=== PATIENT | male | born 1950 | race Caucasian/White ===

== ENCOUNTER 2017-07-03 08:11 | Day surgery (SDC) | payer BC ==
--- NOTE | 2017-07-02 13:45 | HISTORY AND PHYSICAL E ---
History and Physical NAME: LIAM GANT : 1950 AGE: 66Y ADMITTED: 07/03/2017 ROOM: PRIMARY CARE PHYSICIAN: WINSTON DÍAZ MD CHIEF COMPLAINT: Patient presented for colon exam. His colonoscopy in 2006 showed diverticulosis, sigmoid polyp. HISTORY OF PRESENT ILLNESS: A 66-year-old patient who presented for colon screening. He did have colonoscopy showing diverticulosis of sigmoid colon, benign-looking polyp, 2 mm in the sigmoid and this polyp was an adenomatous polyp. PAST MEDICAL HISTORY: 1. Hypertension. 2. High cholesterol. PAST SURGICAL HISTORY: Colonoscopy, 2006. MEDICATIONS: 1. He takes Bystolic. 2. Pravastatin. 3. Vitamin E. SOCIAL HISTORY: . Does not smoke. Drinks twice a week. FAMILY HISTORY: His father had heart disease and ID, passed at age 57. His mom is living. REVIEW OF SYSTEMS: CARDIAC: Hypertension. ENDOCRINE: Negative. GASTROINTESTINAL: Colon screening. PHYSICAL EXAMINATION: VITAL SIGNS: His blood pressure is 120/80, pulse 80, respirations 18, temp is 98. HEAD, EYES, EARS, NOSE, THROAT: Normal. ABDOMEN: Soft. NEUROLOGIC: Exam negative. DIAGNOSTIC DATA: His labs show a white count of 4. He does have anemia; hemoglobin 9.5 with a hematocrit of 31. The patient's iron is low at 17, low iron saturation of 4, TIBC is 449. CONCLUSION: Colon screening. PLAN: Colonoscopy, scheduled for 07/03/2017. DICTATING PHYSICIAN: JESSICA BALLARD M.D. [id number] PHY#: [id number] ID: [id number] JOB#: [id number] ACCT: [id number] cc:MD ARJUN, JESSICA DE LOS SANTOS M.D. >
[~2017-07-03 08:11] MED LIST: EPINEPHRINE INJ 1 MG/10 ML DISP.SYRIN ONE; FENTANYL CITRATE INJ/PF 100 MCG/2 ML AMPUL ONE; FLUMAZENIL INJ 0.5 MG/5 ML VIAL IV ONE; GLUCAGON,HUMAN RECOMB 1 MG INJ ONE; GLYCOPYRROLATE INJ 0.4 MG/2 ML VIAL ONE; LIDOCAINE 2% JELLY 30 ML TUBE ONE; NALOXONE HCL INJ/PF 0.4 MG/1 ML SDV ONE; ONDANSETRON HCL INJ/PF 4 MG/2 ML SDV ONE
[2017-07-03] MEDS: MIDAZOLAM 2 MG/2 ML INJ ONE ×2 (08:56→09:04)
[2017-07-03] MEDS ORDERED: SIMETHICONE 80 MG TAB.CHEW ONE (10:00)
[2017-07-03] MEDS ORDERED: ONDANSETRON HCL INJ/PF 4 MG/2 ML SDV ONE (10:00)
[2017-07-03 10:18] LABS: ABSOLUTE EOSINOPHILS # (AUTO) 0.1 10^3/uL (0.0-0.6); ABSOLUTE LYMPHOCYTES (AUTO) 1.4 10^3/uL (0.5-4.7); ABSOLUTE MONOCYTES (AUTO) 0.5 10^3/uL (0.1-1.4); ABSOLUTE NEUT (AUTO) 2.2 10^3/uL (1.7-8.2); BASOPHILS % (AUTO) 0.4 % (0-2); EOSINOPHILS % (AUTO) 1.9 % (0-6); HEMATOCRIT 28.2 % (37.9-51.0); HEMOGLOBIN 8.8 g/dL (13.5-17.0); HGB HCT DIFFERENCE -1.8; MEAN CORPUSCULAR HEMOGLOBIN 23.2 pg (27.0-33.4); MEAN CORPUSCULAR HGB CONC 31.3 g/dL (32.0-36.0); MEAN CORPUSCULAR VOLUME 74 fl (80-97); RED BLOOD COUNT 3.79 10^6/uL (4.35-5.55); SEGMENTED NEUTROPHILS % (AUTO) 52.7 % (42-78); WHITE BLOOD COUNT 4.2 10^3/uL (4.0-10.5)
[2017-07-03 10:34] LABS: IRON 11.2 ug/dL (49-181)
[2017-07-03 11:07] LABS: PROSTATE SPECIFIC ANTIGEN 1.89 ng/mL (<4.00)
[2017-07-03 11:11] LABS: FERRITIN 4.25 ng/mL (17.9-464.0)
--- NOTE | 2017-07-03 11:15 | OPERATIVE REPORT E ---
Operative Report NAME: LIAM GANT : 1950 AGE: 66Y DATE OF SURGERY: 07/03/2017 ROOM: PREOPERATIVE DIAGNOSIS: Colon screening. POSTOPERATIVE DIAGNOSIS: Sigmoid descending colon diverticulosis. Diverticulosis in the orifice of the appendix adjacent to the ileocecal valve, question ventral hernia. PROCEDURE: Colonoscopy. SURGEON: JESSICA BALLARD M.D. TISSUE REMOVED OR ALTERED: None. ANESTHESIA: Versed 3, fentanyl 100. DESCRIPTION OF PROCEDURE: Rectal exam shows slightly enlarged prostate, sigmoid diverticulosis. Transverse colon difficult to intubate secondary to question ventral hernia. Ascending colon normal. Cecum shows diverticulosis. Scope withdrawn from cecum, ascending, transverse, descending, sigmoid all the way to the rectum. CONCLUSION: Diverticulosis cecum and sigmoid descending colon, question ventral hernia towards the right side of the transverse colon. No evidence of bleeding. No evidence of malignancy. No evidence of polyps. PLAN: Patient needs to have outpatient abdominal CT or abdominal ultrasound looking for ventral hernia and possibility of plain abdominal CT or CT with barium for further evaluation of question ventral hernia. Will start with total abdominal ultrasound to look for ventral hernia or lipoma in the abdominal wall, mid abdomen more towards the right side of the midline. Baseline lab studies. DICTATING PHYSICIAN: JESSICA BALLARD M.D. [id number] PHY#: [id number] ID: [id number] JOB#: [id number] ACCT: [id number] cc:JESSICA BALLARD M.D. >
--- NOTE | 2017-07-03 11:16 | DISCHARGE SUMMARY E ---
Discharge Summary NAME: LIAM GANT : 1950 AGE: 66Y ADMITTED: 07/03/2017 DISCHARGED: 07/03/2017 HOSPITAL COURSE: The patient is a 66-year-old male who presents for colon screening. There are no polyps, no bleeding. The patient does have diverticulosis in his descending colon and in his cecum, question of ventral hernia. DISCHARGE PLAN: 1. Baseline labs studies. 2. Awaiting abdominal ultrasound. 3. Follow up office visit in the next few days. 4. Arrange for outpatient abdominal ultrasound looking for ventral hernia. DICTATING PHYSICIAN: JESSICA BALLARD M.D. [id number] PHY#: [id number] ID: [id number] JOB#: [id number] ACCT: [id number] cc:JESSICA BALLARD M.D., TAJ >
[2017-07-03 11:36] VITALS: BP 122/77
== END 2017-07-03 10:57 | disposition home or self-care (01) ==
LOC: END 08:11
PROVIDERS: ATTEND Specialist
PROC: 0DJD8ZZ Inspection of Lower Intestinal Tract, Via Natural or Artificial Opening Endoscopic (ICD-10-PCS; principal; 2017-07-03 09:00)
DX: Z12.11 Encounter for screening for malignant neoplasm of colon (principal); K57.30 Diverticulosis of large intestine without perforation or abscess without bleeding; I10 Essential (primary) hypertension; E78.00 Pure hypercholesterolemia, unspecified; Z79.899 Other long term (current) drug therapy; D64.9 Anemia, unspecified
CPT/HCPCS: 45378; 36415; 82607; 82728; 83540; 84153; 85025; J2250; J3010; J1610; J2405; J0171; J2310; J3490

== ENCOUNTER → 2017-07-12 | Outpatient (CLI) | payer BC ==
[2017-07-12 14:44] LABS: ABSOLUTE EOSINOPHILS # (AUTO) 0.1 10^3/uL (0.0-0.6); ABSOLUTE LYMPHOCYTES (AUTO) 1.3 10^3/uL (0.5-4.7); ABSOLUTE MONOCYTES (AUTO) 0.3 10^3/uL (0.1-1.4); BASOPHILS % (AUTO) 0.4 % (0-2); EOSINOPHILS % (AUTO) 2.4 % (0-6); HEMATOCRIT 27.8 % (37.9-51.0); HEMOGLOBIN 8.8 g/dL (13.5-17.0); HGB HCT DIFFERENCE -1.4; LYMPHOCYTES % (AUTO) 35.5 % (13-45); MEAN CORPUSCULAR HEMOGLOBIN 22.7 pg (27.0-33.4); MEAN CORPUSCULAR HGB CONC 31.6 g/dL (32.0-36.0); MEAN CORPUSCULAR VOLUME 72 fl (80-97); RED BLOOD COUNT 3.87 10^6/uL (4.35-5.55); RED CELL DISTRIBUTION WIDTH 16.8 % (11.5-14.0); SEGMENTED NEUTROPHILS % (AUTO) 52.7 % (42-78); WHITE BLOOD COUNT 3.8 10^3/uL (4.0-10.5)
== END ==
LOC: OD 14:07
PROVIDERS: ATTEND Specialist
DX: D50.9 Iron deficiency anemia, unspecified (principal)
CPT/HCPCS: 36415; 83540; 85025

== ENCOUNTER 2017-07-18 09:20 | Day surgery (SDC) | payer BC ==
--- NOTE | 2017-07-13 10:04 | HISTORY AND PHYSICAL E ---
History and Physical NAME: LIAM GANT : 1950 AGE: 66Y ADMITTED: 07/18/2017 ROOM: CHIEF COMPLAINT: Iron-deficiency anemia; recent colonoscopy showing diverticulosis. No bleeding in the colon. INDICATION: Patient presented for upper endoscopy; question the reason for iron-deficiency anemia. HISTORY: This 66-year-old male had recent colonoscopy, shows diverticulosis; now patient presents for upper scope. REVIEW OF SYSTEMS: CARDIAC: Hypertension. ENDOCRINE: Negative. GASTROINTESTINAL: Colon screening. Diverticulosis. ONCOLOGY/HEMATOLOGY: Negative. FAMILY HISTORY: Father had cardiac disease. Mother is alive. PHYSICAL EXAMINATION: Age 66. Weight 201. VITAL SIGNS: Blood pressure 130/60, pulse 80, respirations 18, temperature is 98. HEAD, EYES, EARS, NOSE, THROAT: Normal. ABDOMEN: Soft. NEUROLOGIC: Exam negative. LABORATORY: White count 4, hemoglobin 8.8, hematocrit 28.2, MCV 74. Serum iron is 11. Normal B12. CONCLUSION: ANEMIA, IRON DEFICIENCY. PLAN: Upper endoscopy. Abdominal ultrasound questioned ventral hernia or lipoma, abdominal wall hernia. Start the patient on iron, stool softener. Consider hematology consult. Admit on 07/18/2017. DICTATING PHYSICIAN: JESSICA BALLARD M.D. [id number] [id number] PHY#: [id number] ID: [id number] JOB#: [id number] ACCT: [id number] cc:JESSICA BALLARD M.D. >
[~2017-07-18 09:20] MED LIST changes: -FLUMAZENIL INJ 0.5 MG/5 ML VIAL IV ONE; +FLUMAZENIL INJ 0.5 MG/5 ML VIAL ONE; -GLUCAGON,HUMAN RECOMB 1 MG INJ ONE; -LIDOCAINE 2% JELLY 30 ML TUBE ONE
[2017-07-18] MEDS: MIDAZOLAM 2 MG/2 ML INJ ONE ×2 (09:58→10:01)
[2017-07-18 11:11] VITALS: BP 103/70
[2017-07-18 11:43] LABS: ABSOLUTE EOSINOPHILS # (AUTO) 0.1 10^3/uL (0.0-0.6); ABSOLUTE LYMPHOCYTES (AUTO) 1.2 10^3/uL (0.5-4.7); ABSOLUTE MONOCYTES (AUTO) 0.4 10^3/uL (0.1-1.4); ABSOLUTE NEUT (AUTO) 1.7 10^3/uL (1.7-8.2); BASOPHILS % (AUTO) 0.3 % (0-2); EOSINOPHILS % (AUTO) 2.5 % (0-6); HEMATOCRIT 28.4 % (37.9-51.0); HEMOGLOBIN 8.8 g/dL (13.5-17.0); LYMPHOCYTES % (AUTO) 36.1 % (13-45); MEAN CORPUSCULAR HEMOGLOBIN 22.5 pg (27.0-33.4); MEAN CORPUSCULAR HGB CONC 31.1 g/dL (32.0-36.0); MEAN CORPUSCULAR VOLUME 72 fl (80-97); MONOCYTES % (AUTO) 10.8 % (3-13); RED BLOOD COUNT 3.93 10^6/uL (4.35-5.55); RED CELL DISTRIBUTION WIDTH 16.6 % (11.5-14.0); SEGMENTED NEUTROPHILS % (AUTO) 50.3 % (42-78); WHITE BLOOD COUNT 3.4 10^3/uL (4.0-10.5)
--- NOTE | 2017-07-18 15:44 | OPERATIVE REPORT E ---
Operative Report NAME: LIAM GANT : 1950 AGE: 66Y DATE OF SURGERY: 07/18/2017 ROOM: PREOPERATIVE DIAGNOSIS: Iron deficiency anemia. POSTOPERATIVE DIAGNOSIS: Erosive gastritis, duodenitis. OPERATION: Esophagoscopy, gastroscopy, duodenoscopy. SURGEON: JESSICA BALLARD M.D. ANESTHESIA: Versed 4, fentanyl 100. TISSUE REMOVED OR ALTERED: Gastric biopsy for H. pylori. PROCEDURE: scope passed under guided vision without difficulty. Esophagoscopy junction at 40, mild esophagitis, no varices. Gastroscopy: Erosive gastritis, some erosions. Gastroscopy shows no malignancy, no definite ulcer, multiple erosions especially in the antrum. Duodenoscopy: The duodenal bulb is nodular and inflamed consistent with duodenitis. No ulcers. Descending duodenum duodenitis. CONCLUSION: No evidence of ulcers. Erosive gastritis. Severe duodenitis. PLAN: Hold aspirin, nonsteroidal. Start on omeprazole 40 mg p.o. b.i.d. Repeat serum iron, serology for Celiac disease, and H. pylori. DICTATING PHYSICIAN: JESSICA BALLARD M.D. [id number] [id number] PHY#: [id number] ID: [id number] JOB#: [id number] ACCT: [id number] cc:JESSICA BALLARD M.D. >
--- NOTE | 2017-07-19 13:45 | DISCHARGE SUMMARY E ---
Discharge Summary NAME: LIAM GANT : 1950 AGE: 66Y ADMITTED: 07/18/2017 DISCHARGED: 07/18/2017 ADDENDUM: The patient is a 66-year-old male who presented to us with iron deficiency anemia. Recent colonoscopy shows no polyps, no malignancy. He does have diverticulosis. His stool for outpatient occult blood x3 negative. He does have very low iron 11. Today, upper scope shows spasm in the esophagus and erosive gastritis and severe duodenitis. DISCHARGE PLAN: Awaiting biopsy. Start patient on omeprazole. Awaiting H. pylori serology and biopsy. Start the patient on iron. Hold aspirin and start him on omeprazole, Prilosec 40 b.i.d. Consider hematology consult. Patient's primary is Dr. Sravan Ponce, [facility], [place]. DICTATING PHYSICIAN: JESSICA BALLARD M.D. [id number] [id number] PHY#: [id number] ID: [id number] JOB#: [id number] ACCT: [id number] cc:JESSICA BALLARD M.D. >
--- NOTE | 2017-07-19 13:45 | DISCHARGE SUMMARY E ---
Discharge Summary NAME: LIAM GANT : 1950 AGE: 66Y ADMITTED: 07/18/2017 DISCHARGED: 07/18/2017 HOSPITAL COURSE: The patient is a 66-year-old male who presented with iron deficiency anemia. We just did colonoscopy on him a few days ago, which showed no bleeding. The patient had diverticulosis. His stool for occult blood x3 were all negative. Today's upper endoscopy shows no active bleeding. He does have erosive gastritis and severe duodenitis. DISCHARGE PLAN: Awaiting biopsy results. Repeat iron and serology for celiac disease and H. pylori. Patient to start on iron. Patient needs hematology consult and he has a new primary in [facility], Dr. Anand. DICTATING PHYSICIAN: JESSICA BALLARD M.D. [id number] [id number] PHY#: [id number] ID: [id number] JOB#: [id number] ACCT: [id number] cc:JESSICA BALLARD M.D. >
[2017-07-22 17:16] LABS: DEAMIDATED GLIADIN IGA AB 7 units (0-19); DEAMIDATED GLIADIN IGG AB 3 units (0-19); IMMUNOGLOBULIN A 2 140 mg/dL (61-437); T-TRANSGLUTAMINASE (TTG) IGG <2 U/mL (0-5)
== END 2017-07-18 11:30 | disposition home or self-care (01) ==
LOC: END 09:20
PROVIDERS: ATTEND Specialist
PROC: 0DB68ZX Excision of Stomach, Via Natural or Artificial Opening Endoscopic, Diagnostic (ICD-10-PCS; principal; 2017-07-18 10:00)
DX: D50.9 Iron deficiency anemia, unspecified (principal); I10 Essential (primary) hypertension; K31.9 Disease of stomach and duodenum, unspecified; K29.80 Duodenitis without bleeding; K57.30 Diverticulosis of large intestine without perforation or abscess without bleeding
CPT/HCPCS: 43239; 86677 ×3; 36415; 86301; 82941; 85025; 86140; 83520 ×5; 88305 ×2; J2250; J3010; J2405; J0171; J2310; J3490